=== PATIENT | female | born 1955 | race Caucasian/White ===

== ENCOUNTER 2018-07-31 10:01 | Emergency (ER) | payer OTHER ==
[~2018-07-31] VITALS: Ht 165.1 cm; Wt 43.5 kg
[2018-07-31 10:16] VITALS: BP 147/78
--- NOTE | 2018-07-31 10:22 | NUR ---
PT AMBULATED TO ER BED 09
--- NOTE | 2018-07-31 10:45 | NUR ---
PT C/O LEFT GREAT TOE PAIN S/P INJURING AGAINST FURNITURE TODAY HAMMER TOE NOTABLE BUT PT STATES IT WAS STRAIGHT BEFORE-ALSO HAS NOT MENTIONED INGROWN NAIL WITH MINUTE AMOUNT OF SEROSANGUINEOUS DRAINAGE---- NOTIFIED
[2018-07-31] MEDS ORDERED: NEOMYCIN/POLYMYXIN/BACITRACIN 0.9 GM/1 PKT TP ONE (11:50)
[2018-07-31] MEDS ORDERED: CLINDAMYCIN 600 MG/4 ML VIAL IM ONE (11:50)
[2018-07-31] MEDS ORDERED: KETOROLAC 60 MG/2 ML VIAL IM ONE (11:50)
--- NOTE | 2018-07-31 12:16 | NUR ---
pt refused im medications---md notified
--- NOTE | 2018-07-31 12:27 | NUR ---
neosporin applied to affected toe--clean dressing applied
[2018-07-31] MEDS ORDERED: CLINDAMYCIN 150 MG CAP PO ONE (12:30)
[2018-07-31] MEDS ORDERED: CLINDAMYCIN 150 MG CAP ONE (12:41)
[2018-07-31 12:52] VITALS: BP 109/56
--- NOTE | 2018-07-31 12:52 | NUR ---
Patient discharged with v/s stable. Written and verbal after care instructions given and explained. Patient alert, oriented and verbalized understanding of instructions. Ambulatory with steady gait. All questions addressed prior to discharge. ID band removed. Patient advised to follow up with PMD. Rx of clindamycin/tramadol given. Patient educated on indication of medication including possible reaction and side effects. Opportunity to ask questions provided and answered.
== END 2018-07-31 12:52 | disposition home or self-care (01) ==
LOC: MED 10:01
DX: L60.0 Ingrowing nail (principal); L08.9 Local infection of the skin and subcutaneous tissue, unspecified; Z88.5 Allergy status to narcotic agent; Z88.8 Allergy status to other drugs, medicaments and biological substances
CPT/HCPCS: 99283; J1885; J3490

== ENCOUNTER 2018-09-18 09:28 | Emergency (ER) | payer OTHER ==
[~2018-09-18] VITALS: Ht 165.1 cm; Wt 29.5 kg
[2018-09-18 09:50] VITALS: BP 141/74
--- NOTE | 2018-09-18 10:10 | NUR ---
63 Y FEMALE WITH FAMILY C/O LT EAR PAIN AND LT 1ST TOE PAIN X3 DAYS. PT WAS SEEN HERE 5 WEEKS AGO FOR TOE PAIN AND WAS GIVEN ANTIBIOTICS FOR TOE INFECTION. ERYTHMA ON TOE. CAP REFILL <3 SECONDS. VSS AT THIS TIME. PT [id number]. BED IS DOWN, LOCKED, BED RAIL X 1, ERMD TO SEE PT. MEDHX: DENIES RX:ASPIRIN, ALLERGY MEDS
--- NOTE | 2018-09-18 10:25 | NUR ---
DR VÁZQUEZ AT BEDSIDE
[2018-09-18 10:50] VITALS: BP 139/72
--- NOTE | 2018-09-18 10:50 | NUR ---
Patient discharged with v/s stable. Written and verbal after care instructions given and explained. Patient alert, oriented and verbalized understanding of instructions. Ambulatory with steady gait. All questions addressed prior to discharge. ID band removed. Patient advised to follow up with PMD. Rx of ACETOMINOPHEN, KEFLEX, AFRIN given. Patient educated on indication of medication including possible reaction and side effects. Opportunity to ask questions provided and answered. PATIENT INSTRUCTED TO FOLLOW UP WITH SANDRA BURROUGHS DPM.
== END 2018-09-18 10:50 | disposition home or self-care (01) ==
LOC: MED 09:28
DX: J06.9 Acute upper respiratory infection, unspecified (principal); L60.0 Ingrowing nail; Z88.5 Allergy status to narcotic agent; Z88.2 Allergy status to sulfonamides; Z88.1 Allergy status to other antibiotic agents; Z88.8 Allergy status to other drugs, medicaments and biological substances; Z90.89 Acquired absence of other organs
CPT/HCPCS: 99283

== ENCOUNTER 2018-11-25 11:16 | Emergency (ER) | payer OTHER ==
[~2018-11-25] VITALS: Ht 165.1 cm; Wt 43.1 kg
--- NOTE | 2018-11-25 11:27 | NUR ---
Patient is with her mentally disabled daughter in w/c and refusing to enter into triage room at this time. Patient also brought her son to be checked in and pt refusing to enter triage at this time so mother is sitting in ER lobby. Pt appears agitated. Pt verbally abusive to triage nurse and myself. Pt advised to let ER admitting know when she would like to be triaged.
--- NOTE | 2018-11-25 11:30 | NUR ---
Called patient from ER [facility] and asked her if she would like to be triage. Pt replied "I can't leave the children alone!" I advised patient that I would stay in ER [facility] with her children while she was triaged and she could also provided information as to why her son was also being seen today.
[2018-11-25 11:39] VITALS: BP 132/79
--- NOTE | 2018-11-25 12:28 | NUR ---
Patient ambulated to bed 4 with family. RN evaluating patient at bedside.
--- NOTE | 2018-11-25 12:55 | NUR ---
PT C/O FEVER 101.4F LAST NIGHT AND 99F TODAY WITH DRY COUGH AND NASAL CONGESTION. DENIES N/V/D. NO PAIN. DENIES SINUS PRESSURE, SOB. STATES DECREASED APPETITE X 1 DAY. PATIENT STATES PAIN OF 0/10 AT THIS TIME; VSS; PATIENT POSITIONED FOR COMFORT; HOB ELEVATED; BEDRAILS UP X1; BED DOWN. ER MD MADE AWARE OF PT STATUS.
--- NOTE | 2018-11-25 13:24 | NUR ---
Patient being evaluated by Dr. Fernandez at bedside.
[2018-11-25 17:07] VITALS: BP 131/90
--- NOTE | 2018-11-25 17:08 | NUR ---
Patient discharged with v/s stable. Written and verbal after care instructions given and explained. Patient alert, oriented and verbalized understanding of instructions. Ambulatory with steady gait. All questions addressed prior to discharge. ID band removed. Patient advised to follow up with PMD. Rx of AZITHROMYCIN, AJ ANN given. Patient educated on indication of medication including possible reaction and side effects. Opportunity to ask questions provided and answered.
== END 2018-11-25 17:08 | disposition home or self-care (01) ==
LOC: MED 11:16
DX: J06.9 Acute upper respiratory infection, unspecified (principal); J18.9 Pneumonia, unspecified organism; Z88.5 Allergy status to narcotic agent; Z88.8 Allergy status to other drugs, medicaments and biological substances
CPT/HCPCS: 71046; 99283

== ENCOUNTER 2018-12-09 12:39 | Emergency (ER) | payer OTHER ==
[~2018-12-09] VITALS: Ht 165.1 cm; Wt 40.8 kg
[2018-12-09 12:45] VITALS: BP 151/80
--- NOTE | 2018-12-09 12:45 | NUR ---
PT AMBULATED TO BED WITH SON AND DAUGHTER
--- NOTE | 2018-12-09 13:07 | NUR ---
PT SEEN IN OUT ER NOV 25 FOR PNEUMONIA RETURNED TO F/U
--- NOTE | 2018-12-09 13:17 | NUR ---
X-Ray at bedside.
[2018-12-09 13:45] VITALS: BP 129/90
--- NOTE | 2018-12-09 13:45 | NUR ---
Patient discharged with v/s stable. Written and verbal after care instructions given and explained. Patient verbalized understanding. Ambulatory with steady gait. All questions addressed prior to discharge. Advised to follow up with PMD.
== END 2018-12-09 13:45 | disposition home or self-care (01) ==
LOC: MED 12:39
DX: I10 Essential (primary) hypertension (principal); R05 Cough; Z88.5 Allergy status to narcotic agent; Z88.8 Allergy status to other drugs, medicaments and biological substances
CPT/HCPCS: 71045; 99283